=== PATIENT | female | born 1980 | race Caucasian/White ===

== ENCOUNTER 2021-03-01 17:02 | Emergency (ER) | payer OTHER ==
[~2021-03-01] VITALS: Ht 162.6 cm; Wt 108.0 kg
[2021-03-01] MEDS ORDERED: CYCLOBENZAPRINE10 MG PO (19:48)
[2021-03-01] MEDS ORDERED: MEDROLPACK PO (19:48)
== END 2021-03-01 21:09 | disposition home or self-care (01) ==
LOC: ER 17:02
DX: M54.5 Low back pain (principal)

== ENCOUNTER 2021-06-28 15:27 | Emergency (ER) | payer OTHER ==
[~2021-06-28] VITALS: Ht 162.6 cm; Wt 104.3 kg
[~2021-06-28 15:27] MED LIST: CYCLOBENZAPRINE10 MG PO; MEDROLPACK PO
[2021-06-28] MEDS ORDERED: DICLOFENAC POTA50 MG PO (16:09)
[2021-06-28] MEDS ORDERED: CYCLOBENZAPRINE10 MG PO (16:09)
[2021-06-28] MEDS ORDERED: SKELAGESIC PO (16:09)
[2021-06-28] MEDS ORDERED: ULTRAM50 MG PO (16:09)
== END 2021-06-28 16:26 ==
LOC: ER 15:27
DX: M54.5 Low back pain (principal)